=== PATIENT | female | born 2000 | race Caucasian/White ===

== ENCOUNTER → 2020-12-29 | Outpatient (CLI) | payer BC ==
[~2020-12-29] MED LIST: FAMO20TA5 PO; HYOS0.1216 PO
--- NOTE | 2020-12-29 16:54 | Diagnostic Imaging Report ---
INDICATION: anatomy survey. TECHNIQUE: Multiple real-time grayscale images were obtained over the gravid uterus. COMPARISON: None. FINDINGS: The cervix is closed measuring 6.9 cm in length. Placenta is anteriorly positioned, has normal thickness and there is no previa. Due to advanced gestation, maternal adnexa are suboptimally evaluated. The fetus is in transverse lie with head to maternal right. anatomy survey was performed and the following structures are visualized and normal: Stomach, four-chamber heart, kidneys, urinary bladder, three-vessel cord, spine, profile, umbilical cord insertion. The intracranial contents were not well seen due to positioning. Biometrical measurements are as follows: Biparietal 4.44 cm, age 19 weeks 3 days. Head circumference 17.51 cm, age 20 weeks 1 days. Abdominal circumference 15.12 cm, age 20 weeks 3 days. Femur length 3.09 cm, age 19 weeks 5 days. Sonographic estimate age: 20 weeks 0 days. Sonographic estimated date of delivery: 05/18/2021. Estimated Weight: 324 gm (+/- 47 gm). LMP percentile: 29%. heart rate: 155 beats per minute. number: 1 of 1. IMPRESSION: 1. Single live intrauterine with estimated gestational age of 20 weeks and 0 days. 2. anatomy survey is normal with the exception of inability to fully evaluate the intracranial contents due to fetus positioning. Dictated by: Dictated on workstation # [id number]
== END ==
LOC: RAD 13:00
PROVIDERS: ATTEND Obstetrics & Gynecology
DX: Z34.02 Encounter for supervision of normal first pregnancy, second trimester (principal); Z3A.20 20 weeks gestation of pregnancy
CPT/HCPCS: 76805

== ENCOUNTER 2021-04-26 20:18 | Outpatient (CLI) | payer BC ==
[~2021-04-26] VITALS: Ht 165.1 cm; Wt 87.5 kg
[2021-04-26 20:34] VITALS: BP 126/84
[2021-04-26 21:39] VITALS: BP 126/84
[2021-04-26 21:42] VITALS: BP 126/84
[2021-04-26 22:10] VITALS: BP 126/84
== END 2021-04-26 22:10 | disposition home or self-care (01) ==
LOC: LDRP 20:18 → WSo 20:18
PROVIDERS: ATTEND Obstetrics & Gynecology
DX: O62.9 Abnormality of forces of labor, unspecified (principal); Z3A.37 37 weeks gestation of pregnancy
CPT/HCPCS: 99213

== ENCOUNTER 2021-04-27 05:01 | Inpatient (IN) | payer BC ==
[~2021-04-27] VITALS: Ht 167.7 cm; Wt 87.0 kg
[2021-04-27] VITALS (11 sets, daily range): BP systolic 108–157; BP diastolic 63–93
[2021-04-27] MEDS ORDERED: D5 LR IV SOLUTION 1,000 ML IV ONE (05:24)
[2021-04-27] MEDS: D5 LR IV SOLUTION 1,000 ML IV SCH ×2 (05:45→15:02)
[2021-04-27] MEDS ORDERED: CATHETER FLUSH 10 ML SYR IV SCH ×2 (06:00→14:00)
[2021-04-27 06:03] LABS: BASOPHILS % (AUTO) 0 % (0-10); EOSINOPHILS % (AUTO) 0 % (0-10); HEMATOCRIT 38 % (35-52); HEMOGLOBIN 13.1 g/dL (11.5-16.0); LYMPHOCYTES # (AUTO) 1.5 10^3/uL (1.0-4.0); LYMPHOCYTES % (AUTO) 13 % (12-44); MEAN CORPUSCULAR HEMOGLOBIN 31 pg (25-34); MEAN CORPUSCULAR HGB CONC 35 g/dL (32-36); MEAN CORPUSCULAR VOLUME 90 fL (80-99); MEAN PLATELET VOLUME 11.2 fL (9.0-12.2); MONOCYTES # (AUTO) 0.6 10^3/uL (0.0-1.0); MONOCYTES % (AUTO) 5 % (0-12); NEUTROPHILS # (AUTO) 9.4 10^3/uL (1.8-7.8); NEUTROPHILS % (AUTO) 80 % (42-75); PLATELET COUNT 193 10^3/uL (130-400); WHITE BLOOD COUNT 11.7 10^3/uL (4.3-11.0)
[2021-04-27] MEDS ORDERED: LIDOCAINE/EPI 2% 1:200,00 (XYLOCAINE) 10 ML VIAL ONE ×2 (06:25→06:26)
[2021-04-27] MEDS ORDERED: OXYTOCIN PRE-MIX DRIP 500 ML IV ONE (06:33)
[2021-04-27] MEDS: OXYTOCIN PRE-MIX DRIP 500 ML IV SCH ×2 (07:00→07:45)
[2021-04-27] MEDS ORDERED: BENZOCAINE/MENTHOL (DERMOPLAST) 56 ML CAN TP PRN (07:30)
[2021-04-27] MEDS ORDERED: WITCH HAZEL(TUCKS) 40 EA JAR TOP PRN (07:30)
[2021-04-27] MEDS ORDERED: MEASLES,MUMPS,RUBELLA 1 EA INJ SQ ONE (07:30)
[2021-04-27] MEDS ORDERED: HYDROcodone/APAP 5 MG/325 MG (LORTAB) TAB PO PRN (07:30)
[2021-04-27] MEDS ORDERED: NALOXONE 0.4 MG/ML 1 ML (NARCAN) VIAL IV PRN (07:30)
[2021-04-27] MEDS ORDERED: TETANUS,DIPTH,PERTUSS P/F (BOOSTRIX) 0.5 ML VIAL IM ONE (07:30)
[2021-04-27] MEDS ORDERED: DIBUCAINE 1% OINTMENT 30 GM TUBE TOP PRN (07:30)
--- NOTE | 2021-04-27 08:41 | OB Labor & Delivery Record ---
L&D History Date of Service Date of Service: Apr 27, 2021 History Expected Date of Delivery: May 16, 2021 Gestational Age in Weeks: 37 Complications Events: Routine care Operative Indications (Cesarea: N/A-Vaginal Delivery Intrapartal Events: None L&D Stage1 Stage One Onset of Labor - Date: Apr 27, 2021 Monitors and Tracing Monitor Mode: External Heart Rate: 155 Monitor Accelerations: Uniform Monitor Decelerations: Variable Station: 0 Correction Variability: Average (6-10) Short Term Variability: Present Presentation: Vertex Vital Signs VS - Last 72 Hours, by Label 04/27/21 04/27/21 04/27/21 04/27/21 05:20 05:20 06:59 07:13 Temp 36.6 36.6 Pulse 95 95 91 83 Resp 18 18 18 18 B/P (MAP) 157/93 (114) 127/63 (84) 121/63 (82) Pulse Ox 98 98 O2 Delivery Room Air Room Air Room Air Room Air Rupture of Membranes Spontaneous Ruture of Membrane: Yes Amniotic Membrane Rupture Time: 0620 Amniotic Membrane Fluid Desc.: Clear Vaginal Bleeding Description: Normal Show Progress/Notes Patient admitted in active labor 6 cm dilatation, rapidly progressing to complete and +1 station without any analgesia when I was contacted for delivery L&D Stage2 Stage Two Stage II Date: Apr 27, 2021 Monitors and Tracing Monitor Mode: External Heart Rate: 155 Monitor Accelerations: Uniform Monitor Decelerations: Variable Correction Variability: Average (6-10) Short Term Variability: Present Position: Right Occiput Anterior Presentation: Vertex Cord Descript/Complications Cord Vessel Description: 3 Vessels Delivery Type Infant Delivery Method: Spontaneous Vaginal Anterior Shoulder: Left Episiotomy/Perineal Laceration Laceraction(s)/Extensions: Yes Episiotomy Description: Right Mediolateral Degree (describe repair) RML repaired using 3-0 rapide and 2-0 vicryl suture in usual fashion. Condition of Infant Delivery 1 minute Comment: 8 5 minute Comment: 9 Notes Live female weight 5lbs 6 oz Condition of Infant Condition of Infant: Living Exam: No Observed Abnormalities Resuscitation Resuscitation: N/A - Spontaneous Resp L&D Stage3 Stage Three Stage III Date: Apr 27, 2021 Pictocin Pitocin Administration Comment: 30 mu wide open after delivery of placenta Placenta Delivery Placenta Delivery: Spontaneous Delivery Summary Summary Estimated blood loss (mL): 350 Attending at delivery: Jyotsna Cuevas DO Condition of Delivery Examined: Cervix Examined, Uterus Explored Post Hemorrhage: No Condition of Mother stable Condition of (s) stable JYOTSNA CUEVAS DO Apr 27, 2021 8:41 am
--- NOTE | 2021-04-27 08:43 | History & Physical-OB ---
OB - Chief Complaint & HPI Date/Time Date of Admission: Date of Admission: Apr 27, 2021 at 5:27 am Date seen by a Provider: Apr 27, 2021 Time Seen by a Provider: 06:55 Chief Complaint/History OB-Reason for Admission/Chief: Onset of Labor Hx : 1 Hx Para: 0 Expected Date of Delivery: May 16, 2021 Gestational Age in Weeks: 37 Gestational Age in Days: 2 Admission Nurse Assessment Rev: Yes History of Labs B pos Antibody neg RI RPR NR HBsAg NR HIV NR GC neg GBS neg Allergies and Home Medications Allergies Coded Allergies: No Known Drug Allergies (Unverified , 05/31/14) Patient Home Medication List Home Medication List Reviewed: Yes No Active Prescriptions or Reported Meds OB - History Hx of Present Care: Yes Ultrasounds: Normal mid trimester US Obstetrical Complications: None Medical Complications: None Delivery History Hx Blood Disorders: No Patient Past Medical History n/a Immunizations Influenza Vaccine Up-to-Date: No; Not Current OB - Admission Exam Physical Exam Vitals: Vital Signs 04/27/21 07:13 Pulse 83 Resp 18 B/P (MAP) 121/63 (82) O2 Delivery Room Air HEENT: NCAT Heart: Rhythm Normal Lungs: Clear Abdomen: Gravid Extremities: Normal Reflexes: Normal Cervical Dilatation: 6cm Effacement: 100% Station: -1 Membranes: Intact Heart Rate: 130's Accelerations: Accelerations Present Decelerations: No Decelerations Short Term Variability: Present Fci Variability: Average (6-25) Contractions on Admission: < 5 Minutes Apart Intensity: Firm Labs Laboratory Tests Test 04/27/21 05:45 Range/Units White Blood Count 11.7 H 4.3-11.0 10^3/uL Red Blood Count 4.17 3.80-5.11 10^6/uL Hemoglobin 13.1 11.5-16.0 g/dL Hematocrit 38 35-52 % Mean Corpuscular Volume 90 80-99 fL Mean Corpuscular Hemoglobin 31 25-34 pg Mean Corpuscular Hemoglobin Concent 35 32-36 g/dL Red Cell Distribution Width 12.3 10.0-14.5 % Platelet Count 193 130-400 10^3/uL Mean Platelet Volume 11.2 9.0-12.2 fL Immature Granulocyte % (Auto) 1 % Neutrophils (%) (Auto) 80 H 42-75 % Lymphocytes (%) (Auto) 13 12-44 % Monocytes (%) (Auto) 5 0-12 % Eosinophils (%) (Auto) 0 0-10 % Basophils (%) (Auto) 0 0-10 % Neutrophils # (Auto) 9.4 H 1.8-7.8 10^3/uL Lymphocytes # (Auto) 1.5 1.0-4.0 10^3/uL Monocytes # (Auto) 0.6 0.0-1.0 10^3/uL Eosinophils # (Auto) 0.0 0.0-0.3 10^3/uL Basophils # (Auto) 0.0 0.0-0.1 10^3/uL Immature Granulocyte # (Auto) 0.1 0.0-0.1 10^3/uL OB - Assessment/Plan/Diagnosis Assessment Assessment: active labor Admission Dx 20 yo @ 37.2 weeks Active labor GBS neg Admission Status: Inpatient Order (span 2 midnights) Reason for Inpatient Admission: Active labor at term Plan Plan: Expectant Management JYOTSNA CUEVAS DO Apr 27, 2021 8:43 am
[2021-04-27] MEDS: FERROUS SULF 325 MG (IRON) TAB PO SCH (09:22)
[2021-04-27] MEDS: DOCUSATE SODIUM 100 MG (COLACE) CAP PO SCH ×2 (09:22→22:58)
[2021-04-27] MEDS ORDERED: IBUPROFEN 600 MG (MOTRIN) TAB PO ONE (09:24)
[2021-04-27] MEDS: IBUPROFEN 600 MG (MOTRIN) TAB PO SCH ×3 (09:25→22:58)
[2021-04-28 02:05] VITALS: BP 99/56
[2021-04-28 05:37] VITALS: BP 116/73
[2021-04-28] MEDS: IBUPROFEN 600 MG (MOTRIN) TAB PO SCH ×2 (05:38→11:41)
[2021-04-28 05:50] LABS: BASOPHILS % (AUTO) 0 % (0-10)
[2021-04-28 05:52] LABS: EOSINOPHILS # (AUTO) 0.1 10^3/uL (0.0-0.3); EOSINOPHILS % (AUTO) 1 % (0-10); HEMATOCRIT 32 % (35-52); HEMOGLOBIN 10.8 g/dL (11.5-16.0); LYMPHOCYTES # (AUTO) 1.3 10^3/uL (1.0-4.0); LYMPHOCYTES % (AUTO) 21 % (12-44); MEAN CORPUSCULAR HEMOGLOBIN 32 pg (25-34); MEAN CORPUSCULAR HGB CONC 33 g/dL (32-36); MEAN CORPUSCULAR VOLUME 95 fL (80-99); MEAN PLATELET VOLUME 11.3 fL (9.0-12.2); MONOCYTES # (AUTO) 0.3 10^3/uL (0.0-1.0); MONOCYTES % (AUTO) 6 % (0-12); NEUTROPHILS # (AUTO) 4.3 10^3/uL (1.8-7.8); NEUTROPHILS % (AUTO) 71 % (42-75); PLATELET COUNT 132 10^3/uL (130-400); WHITE BLOOD COUNT 6.1 10^3/uL (4.3-11.0)
[2021-04-28] MEDS ORDERED: PRENATAL VITAMIN 1 EA TAB PO SCH (07:00)
[2021-04-28 08:48] VITALS: BP 123/74
[2021-04-28] MEDS: DOCUSATE SODIUM 100 MG (COLACE) CAP PO SCH (08:49)
[2021-04-28] MEDS: FERROUS SULF 325 MG (IRON) TAB PO SCH (08:49)
[2021-04-28] MEDS ORDERED: DOCU100C37 PO (10:59)
[2021-04-28] MEDS ORDERED: BENZ78AE5 TP (10:59)
[2021-04-28] MEDS ORDERED: ACHD5005 PO (10:59)
[2021-04-28] MEDS ORDERED: DIBU30OI TOP (10:59)
[2021-04-28] MEDS ORDERED: IBUP-844 PO (10:59)
--- NOTE | 2021-04-28 11:01 | Discharge Inst-Women's Service ---
Discharge Inst-Women's Serv Depart Medication/Instructions New, Converted or Re-Newed RX: Transmitted to Pharmacy Consults/Follow Up Additional Follow Up: Yes Orders/Referrals 6wk PP appt Activity Activity: Activity as Tolerated Driving Instructions: No Driving for 1 Week NO SMOKING: NO SMOKING Nothing Inside Vagina: No Douching, No [place], No Tampons Diet Discharge Diet: No Restrictions Symptoms to Report to : Pain Increased, Fever Over 101 Degrees F, Vaginal Bleeding Increase For Any Problems or Questions: Contact Your Physician DALLIN DONIS APRN Apr 28, 2021 11:01
--- NOTE | 2021-04-28 11:02 | Postpartum Progress Note ---
Note Note Day # 1 Subjective: Patient is without complaints. Ambulating, voiding. Tolerating a regular diet without nausea or vomiting. Normal lochia. Pain is well controlled with oral pain medications. Objective: Physical Exam: General - Alert and oriented, no apparent distress Abdomen - Soft, appropriately tender to palpation, non-distended, fundus firm at umbilicus Extremities - no edema, negative Julio's bilaterally Assessment: Post- day # 1, status post vaginal delivery. Recovering well, hemodynamically stable Acute blood loss anemia Plan: Routine care. Encourage breast feeding. Encourage ambulation. Ferrous sulfate supplementation. Plan for discharge today Vitals - Labs Vital Signs - I&O Vital Signs Date Time Temp Pulse Resp B/P (MAP) Pulse Ox O2 Delivery O2 Flow Rate FiO2 04/28/21 05:37 36.2 87 18 116/73 (87) 98 Room Air 04/28/21 02:05 36.4 71 16 99/56 (70) 97 Room Air 04/27/21 22:57 36.3 69 20 108/71 (83) 98 Room Air 04/27/21 18:23 36.9 73 18 116/74 (88) 97 Room Air 04/27/21 12:53 36.3 76 18 113/72 (86) 98 Room Air I & O 04/28/21 07:00 Intake Total 1000 ml Balance 1000 ml Labs Laboratory Tests 04/28/21 05:17: White Blood Count 6.1, Red Blood Count 3.42L, Hemoglobin 10.8L, Hematocrit 32L, Mean Corpuscular Volume 95, Mean Corpuscular Hemoglobin 32, Mean Corpuscular Hemoglobin Concent 33, Red Cell Distribution Width 12.7, Platelet Count 132, Mean Platelet Volume 11.3, Immature Granulocyte % (Auto) 1, Neutrophils (%) (Auto) 71, Lymphocytes (%) (Auto) 21, Monocytes (%) (Auto) 6, Eosinophils (%) (Auto) 1, Basophils (%) (Auto) 0, Neutrophils # (Auto) 4.3, Lymphocytes # (Auto) 1.3, Monocytes # (Auto) 0.3, Eosinophils # (Auto) 0.1, Basophils # (Auto) 0.0, Immature Granulocyte # (Auto) 0.1, Percent Immature Platelet Fraction 5.0 DALLIN DONIS CORDUROY CUTTING SUPERVISOR Apr 28, 2021 11:02
== END 2021-04-28 13:55 | disposition home or self-care (01) | DRG 806 ==
LOC: WSo 05:01 → LDRP 05:05 → WSo 05:26 → LDRP 05:27
PROVIDERS: ADMIT Obstetrics & Gynecology; ATTEND Obstetrics & Gynecology
PROC: 10E0XZZ Delivery of Products of Conception, External Approach (ICD-10-PCS; principal; 2021-04-27)
PROC: 0W8NXZZ Division of Female Perineum, External Approach (ICD-10-PCS; 2021-04-27)
DX: O90.81 Anemia of the puerperium (principal); D62 Acute posthemorrhagic anemia; Z37.0 Single live birth; Z3A.37 37 weeks gestation of pregnancy
CPT/HCPCS: 36415; 85025; 86850; 86900; 86901

== ENCOUNTER → 2022-09-21 | Outpatient (CLI) | payer BC ==
[~2022-09-21] MED LIST changes: +ACHD5005 PO; +BENZ78AE5 TP; +DIBU30OI TOP; +DOCU100C37 PO; +IBUP-844 PO
--- NOTE | 2022-09-21 15:36 | Diagnostic Imaging Report ---
INDICATION: survey. TECHNIQUE: Multiple real-time grayscale images were obtained over the gravid uterus. COMPARISON: None FINDINGS: There is a single live fetus in cephalic presentation. heart rate was recorded at 1 46 bpm. Placenta is posterior. No previa is detected. Amniotic fluid index is 10 cm. Cervical length is 5 cm. kidneys, bladder and stomach are unremarkable. brains unremarkable. There is a four-chamber heart. There is a three-vessel cord with normal insertion. spine is unremarkable. Biometrical measurements are as follows: Biparietal 4.35 cm, age 19 weeks 2 days. Head circumference 17.06 cm, age 19 weeks 5 days. Abdominal circumference 14.67 cm, age 20 weeks 0 days. Femur length 3.54 cm, age 21 weeks 2 days. Sonographic estimate age: 20 weeks 1 days. Sonographic estimated date of delivery: 02/07/2023. Estimated Weight: 351 gm (+/- 51 gm). LMP percentile: 68%. heart rate: 146 beats per minute. number: 1 of 1. IMPRESSION: Single live IUP 20 weeks 1 day gestational age. Estimated of confinement sonographically is 02/07/2023. Dictated by: Dictated on workstation # [id number]
== END ==
LOC: RAD 10:42
PROVIDERS: ATTEND Nurse Practitioner Women's Health
DX: Z34.02 Encounter for supervision of normal first pregnancy, second trimester (principal); Z3A.20 20 weeks gestation of pregnancy
CPT/HCPCS: 76805

== ENCOUNTER 2022-12-08 14:22 | Outpatient (CLI) | payer BC ==
[~2022-12-08] VITALS: Ht 167 cm; Wt 82.5 kg
[2022-12-08 14:40] VITALS: BP 115/67
[2022-12-08 14:41] LABS: BILIRUBIN,URINE 1+ (NEGATIVE); CLARITY,URINE CLOUDY; COLOR,URINE DARK YELLOW; GLUCOSE, URINE (UA) NEGATIVE (NEGATIVE); KETONES,URINE NEGATIVE (NEGATIVE); LEUKOCYTE ESTERASE ,URINE 1+ (NEGATIVE); NITRITE,URINE NEGATIVE (NEGATIVE); PROTEIN,URINE 1+ (NEGATIVE)
[2022-12-08 14:47] VITALS: BP 115/67
[2022-12-08 14:52] LABS: BACTERIA,URINE LARGE /HPF; RBC,URINE 50-100 /HPF
[2022-12-08] MEDS ORDERED: CEPH500C PO ×2 (15:07)
--- NOTE | 2022-12-08 15:11 | OB Triage Report ---
Standard Progress Note Progress Notes/Assess & Plan Date Seen by a Provider: Dec 08, 2022 Time Seen by a Provider: 15:08 Expected Date of Delivery: Feb 08, 2023 Gestational Age in Weeks: 31 Gestational Age in Days: 1 LMP/ADELIA Comment: This presents to L&D @ 84x8tyw with c/o Cramping and spotting. Pt states that she had intercourse yesterday and no active bleeding at present FHT 135 reactive TOCOs none irritability Labs reviewed +UTI UCX sent Progress/Assessment & Plan IUP @ 31w1d UTI Spotting postcoital Reassurance pelvic rest RX for ATBX UCX pending. Diagnosis/Problems Diagnosis/Problems (1) UTI (urinary tract infection) during (2) 31 weeks gestation of (3) Uterine contractions (4) Back pain ARACELI FERNÁNDEZ DO Dec 08, 2022 15:11
== END 2022-12-08 15:19 | disposition home or self-care (01) ==
LOC: WSo 14:22 → LDRP 14:22 → WSo 15:19
PROVIDERS: ATTEND Obstetrics & Gynecology
DX: O23.43 Unspecified infection of urinary tract in pregnancy, third trimester (principal); O26.853 Spotting complicating pregnancy, third trimester; Z3A.31 31 weeks gestation of pregnancy
CPT/HCPCS: 81000; 87088; 99212

== ENCOUNTER 2022-12-09 20:34 | Outpatient (CLI) | payer BC ==
[~2022-12-09] VITALS: Ht 167.7 cm; Wt 83.1 kg
[~2022-12-09 20:34] MED LIST changes: +CEPH500C PO
[2022-12-09 21:03] VITALS: BP 119/68
[2022-12-09] MEDS ORDERED: ACETAMINOPHEN 500 MG TABLET ONE (21:21)
[2022-12-09] MEDS ORDERED: ACETAMINOPHEN 500 MG TABLET PO ONE (21:30)
--- NOTE | 2022-12-11 08:37 | Physician Query-Final Dx ---
Clinic Account Progress/Dx Physician Query: Please give diagnosis Please include # weeks gestation Date of Service Dec 09, 2022 at 20:34 VIKRAM,MayDec 11, 2022 08:37
== END 2022-12-09 21:34 | disposition home or self-care (01) ==
LOC: WSo 20:34 → LDRP 20:35 → WSo 21:34
PROVIDERS: ATTEND Obstetrics & Gynecology
DX: O62.9 Abnormality of forces of labor, unspecified (principal); Z3A.31 31 weeks gestation of pregnancy
CPT/HCPCS: 99212

== ENCOUNTER 2022-12-11 01:13 | Inpatient (IN) | payer BC ==
[2022-12-11] VITALS (12 sets, daily range): BP systolic 96–145; BP diastolic 52–80
[~2022-12-11] VITALS: Ht 167.7 cm; Wt 83.3 kg
[2022-12-11 01:37] LABS: BILIRUBIN,URINE NEGATIVE (NEGATIVE); CLARITY,URINE CLEAR; COLOR,URINE YELLOW; GLUCOSE, URINE (UA) NEGATIVE (NEGATIVE); KETONES,URINE NEGATIVE (NEGATIVE); LEUKOCYTE ESTERASE ,URINE 2+ (NEGATIVE); NITRITE,URINE NEGATIVE (NEGATIVE); PROTEIN,URINE NEGATIVE (NEGATIVE)
[2022-12-11] MEDS ORDERED: AMPICILLIN 2,000 MG/14.8 ML (IV USE) ONE (01:45)
[2022-12-11] MEDS ORDERED: NS (IVPB) 100 ML 100 ML ONE (01:45)
[2022-12-11] MEDS ORDERED: WATER (STERILE) FOR INJECTION 20 ML ONE (01:45)
[2022-12-11] MEDS ORDERED: BETAMETHASONE Acetate/Na Phosphate 6 MG/ML INJ ONE (01:46)
[2022-12-11] MEDS ORDERED: LACTATED RINGERS 1,000 ML IV ONE (01:46)
[2022-12-11] MEDS ORDERED: AMPICILLIN (IV) 2,000 MG in NS (IVPB) 50 ML 50 ML IV SCH (01:50)
[2022-12-11 01:51] LABS: BACTERIA,URINE LARGE /HPF; WBC,URINE 50-100 /HPF
[2022-12-11] MEDS ORDERED: D5 LR 1,000 ML IV SOLN 1,000 ML IV SCH (02:00)
[2022-12-11 02:03] LABS: BASOPHILS % (AUTO) 0 % (0-10); EOSINOPHILS # (AUTO) 0.1 10^3/uL (0.0-0.3); EOSINOPHILS % (AUTO) 1 % (0-10); HEMATOCRIT 36 % (35-52); HEMOGLOBIN 11.6 g/dL (11.5-16.0); LYMPHOCYTES # (AUTO) 1.1 10^3/uL (1.0-4.0); LYMPHOCYTES % (AUTO) 14 % (12-44); MEAN CORPUSCULAR HEMOGLOBIN 32 pg (25-34); MEAN CORPUSCULAR HGB CONC 32 g/dL (32-36); MEAN CORPUSCULAR VOLUME 98 fL (80-99); MEAN PLATELET VOLUME 10.9 fL (9.0-12.2); MONOCYTES # (AUTO) 0.6 10^3/uL (0.0-1.0); MONOCYTES % (AUTO) 7 % (0-12); NEUTROPHILS # (AUTO) 6.5 10^3/uL (1.8-7.8); NEUTROPHILS % (AUTO) 78 % (42-75); PLATELET COUNT 143 10^3/uL (130-400); WHITE BLOOD COUNT 8.4 10^3/uL (4.3-11.0)
[2022-12-11] MEDS ORDERED: ONDANSETRON 4 MG/2 ML (SDV) Z0FRAN ONE (02:27)
[2022-12-11] MEDS ORDERED: ONDANSETRON 4 MG/2 ML (SDV) Z0FRAN IVP ONE (02:30)
[2022-12-11] MEDS ORDERED: OXYTOCIN PRE-MIX DRIP 500 ML IV ONE (02:46)
--- NOTE | 2022-12-11 03:09 | History & Physical-OB ---
OB - Chief Complaint & HPI Date/Time Date of Admission: Date of Admission: 12/11/22 Date seen by a Provider: Dec 11, 2022 Time Seen by a Provider: 01:40 Chief Complaint/History OB-Reason for Admission/Chief: Onset of Labor Hx : 2 Hx Para: 1 Expected Date of Delivery: Feb 08, 2023 Gestational Age in Weeks: 31 Gestational Age in Days: 4 Admission Nurse Assessment Rev: Yes History of Labs B+ R-I HepB/C neg HIV neg Other This 22yo presents to L&D with c/o CTXs She states that she has had CTX off and on all day today but CTXs worsened after dinner last night. Pt presents with increasing frequency and intensity of CTXs. Pt was seen 2x this weekend with back pain and was dx'd with UTI and was given RX for UTI UCX showed contaminated but some bacteria questionable concern. Pt states that CTXs didn't become regular until this evening. Pt was CTXing Q 2-3min with FHT 140 and with variables. RN CVX check 5-6cm bulging bag. Allergies and Home Medications Allergies Coded Allergies: No Known Drug Allergies (Unverified , 05/31/14) Patient Home Medication List Home Medication List Reviewed: Yes Cephalexin (Cephalexin) 500 Mg Capsule, 500 MG PO BID Prescribed by: Araceli Fernández on 12/08/22 1507 Last Action: Reviewed Docusate Sodium (Docusate Sodium) 100 Mg Capsule, 100 MG PO BID Prescribed by: DALLIN DONIS on 04/28/21 1059 Last Action: Reviewed Discontinued Medications Benzocaine/Menthol (Dermoplast Pain Relieving [place]) 78 Gm Aerosol, 56 EA TP UD PRN for PAIN- SEE INSTRUCTIONS Prescribed by: DALLIN DONIS on 04/28/21 1059 Dibucaine (Dibucaine) 30 Gm Oint, 0 GM TOP UD PRN for PAIN- SEE INSTRUCTIONS Prescribed by: DALLIN DONIS on 04/28/21 1059 Hydrocodone Bit/Acetaminophen (HYDROcodone/APAP 5 MG/325 MG TAB) 1 Tab Tab, 1 EA PO Q4H PRN for PAIN-MODERATE (5-7) Prescribed by: DALLIN DONIS on 04/28/21 1100 Ibuprofen (Ibu) 600 Mg Tablet, 600 MG PO Q6HR Prescribed by: DALLIN DONIS on 04/28/21 1059 OB - History Hx of Present Care: Yes Ultrasounds: Normal mid trimester US Obstetrical Complications: None Medical Complications: None Information Induced Hypertension: No Maternal Gestational Diabetes: No Hemorrhage: No Obstetrical History Hx : 2 Hx Para: 1 Hx # Term Pregnancies: 1 Number of Living Children: 1 Hx Termination: No Hx Multiple Gestation: No Hx Ectopic : No Hx Stillbirth: No Hx Complication: No Hx Induced Hypertens: No Hx Maternal Gestational Diabet: No Hx Hemorrhage: No Delivery History Hx Dystocia: No Hx Forceps Assisted Delivery: No Hx Vacuum Extraction Assisted: No Hx Placenta Abnormality: No Hx Distress: No Hx Large For Gestational Age I: No Hx Small for Gestational Age I: No Hx Section: No Hx Vaginal Delivery Post C-Sec: No Hx Blood Disorders: No Adverse Rxn to Tranfusion: No Patient Past Medical History n/a Social History/Family History Alcohol Use: Denies Use Smoking Cessation: Never smoker 2nd Hand Smoke Exposure: No Immunizations Influenza Vaccine Up-to-Date: Yes; Up-to-Date OB - Admission Exam Physical Exam HEENT: NCAT Heart: Rhythm Normal Lungs: Clear Abdomen: Gravid Extremities: Normal Reflexes: Normal Cervical Dilatation: 6cm Effacement: 75% Station: Ballotable (US shows breech presentation ) Membranes: Intact Intensity: Moderate Labs Laboratory Tests Test 12/11/22 01:25 12/11/22 01:45 Range/Units Urine Color YELLOW Urine Clarity CLEAR Urine pH 6.0 5-9 Urine Specific [place] 1.020 1.016-1.022 Urine Protein NEGATIVE NEGATIVE Urine Glucose (UA) NEGATIVE NEGATIVE Urine Ketones NEGATIVE NEGATIVE Urine Nitrite NEGATIVE NEGATIVE Urine Bilirubin NEGATIVE NEGATIVE Urine Urobilinogen 1.0 < = 1.0 MG/DL Urine Leukocyte Esterase 2+ H NEGATIVE Urine RBC (Auto) 2+ H NEGATIVE Urine RBC 5-10 H /HPF Urine WBC 50-100 H /HPF Urine Squamous Epithelial Cells 10-25 H /HPF Urine Crystals NONE /LPF Urine Bacteria LARGE H /HPF Urine Casts NONE /LPF Urine Mucus MODERATE H /LPF Urine Culture Indicated YES White Blood Count 8.4 4.3-11.0 10^3/uL Red Blood Count 3.64 L 3.80-5.11 10^6/uL Hemoglobin 11.6 11.5-16.0 g/dL Hematocrit 36 35-52 % Mean Corpuscular Volume 98 80-99 fL Mean Corpuscular Hemoglobin 32 25-34 pg Mean Corpuscular Hemoglobin Concent 32 32-36 g/dL Red Cell Distribution Width 15.7 H 10.0-14.5 % Platelet Count 143 130-400 10^3/uL Mean Platelet Volume 10.9 9.0-12.2 fL Immature Granulocyte % (Auto) 1 % Neutrophils (%) (Auto) 78 H 42-75 % Lymphocytes (%) (Auto) 14 12-44 % Monocytes (%) (Auto) 7 0-12 % Eosinophils (%) (Auto) 1 0-10 % Basophils (%) (Auto) 0 0-10 % Neutrophils # (Auto) 6.5 1.8-7.8 10^3/uL Lymphocytes # (Auto) 1.1 1.0-4.0 10^3/uL Monocytes # (Auto) 0.6 0.0-1.0 10^3/uL Eosinophils # (Auto) 0.1 0.0-0.3 10^3/uL Basophils # (Auto) 0.0 0.0-0.1 10^3/uL Immature Granulocyte # (Auto) 0.1 0.0-0.1 10^3/uL Syphilis Total Antibody Negative Negative OB - Assessment/Plan/Diagnosis Assessment Assessment: active labor Admission Dx IUP @ 31w4d Active labor UTI Breech Admission Status: Inpatient Order (span 2 midnights) Reason for Inpatient Admission: Active labor Plan Plan: Expectant Management (ATBx IV BTMZ 12mg Learning And Development Intern notified) ARACELI FERNÁNDEZ DO Dec 11, 2022 03:09
[2022-12-11] MEDS ORDERED: OXYTOCIN PRE-MIX DRIP 500 ML IV SCH (03:15)
[2022-12-11] MEDS ORDERED: Tetanus/Diphtheria/Pertussis (Acell) ADULT Vaccine 0.5 ML IM ONE (03:15)
[2022-12-11] MEDS ORDERED: ACETAMINOPHEN 500 MG TABLET PO PRN (03:15)
[2022-12-11] MEDS ORDERED: NALOXONE 0.4 MG/ML 1 ML (NARCAN) VIAL IV PRN (03:15)
[2022-12-11] MEDS ORDERED: IBUPROFEN 600 MG (MOTRIN) TAB PO PRN (03:15)
[2022-12-11] MEDS ORDERED: DIBUCAINE 1% OINTMENT 28 GM TUBE TOP PRN (03:15)
[2022-12-11] MEDS ORDERED: BENZOCAINE/MENTHOL (DERMOPLAST) 56 ML CAN TP PRN (03:15)
[2022-12-11] MEDS ORDERED: WITCH HAZEL(TUCKS) 40 EA JAR TOP PRN (03:15)
--- NOTE | 2022-12-11 03:27 | OB Labor & Delivery Record ---
Vag Delivery Note Vag Delivery Note Date of Delivery: 12/11/22 Preoperative Diagnosis: Logan Rm is a (22 /Para / ,Gestational Age 31w4d (wks)with CTXs breech presentation Postoperative Diagnosis: Same Surgeon: ARACELI FERNÁNDEZ Grade Foreman: [] Anesthesia: None Delivery Type: Spontaneous Vaginal delivery Findings: [] Liveborn female infant, apgars 2/4/7, weight Pending Lacerations: None Intact placenta with 3 vessel cord. No nuchal cord, body cord or shoulder dystocia Estimated Blood Loss: 100ml Complications: Breech presentation Condition: Stable Description of Procedure: The patient is a 22 year old female who presented To labor and delivery with complaint of contractions. She had been seen earlier in the week diagnosed with a urinary tract infection and given a prescription for antibiotics. She states that the contractions were off and on throughout the day today but became more frequent and intense after dinner 6 or 7:00 in the evening last night. When she arrived on labor and delivery she is williams about every 2 to 3 minutes and she was about 6 cm dilated with a bulging bag. An ultrasound was performed which showed breech presentation. The ticket clerk and the OR team were notified. However, she rapidly progressed to complete with an intact bag. She was then set up for delivery delivered the buttocks and an LSA position. The buttocks and then the legs were delivered and the cord was lengthened and the body was allowed to hang. The arms were then delivered the right arm followed by the left arm followed by the head. The was placed on maternal abdomen the cord was clamped and then cut and the was taken to the team underneath the warmer. The placenta delivered spontaneously intact with three-vessel cord. Cord gases and cord bloods were obtained. The cervix, vagina, periurethral and perineal areas were all ins pected. There were no lacerations. The quantitative blood loss was 100 cc. The mother and tolerated the procedure well. The infant was taken to the nursery for continued care. All my counts were correct x2 Vitals - Labs Labs Laboratory Tests 12/11/22 01:25: Urine Color YELLOW, Urine Clarity CLEAR, Urine pH 6.0, Urine Specific [place] 1.020, Urine Protein NEGATIVE, Urine Glucose (UA) NEGATIVE, Urine Ketones NEGATIVE, Urine Nitrite NEGATIVE, Urine Bilirubin NEGATIVE, Urine Urobilinogen 1.0, Urine Leukocyte Esterase 2+H, Urine RBC (Auto) 2+H, Urine RBC 5-10H, Urine WBC 50-100H, Urine Squamous Epithelial Cells 10-25H, Urine Crystals NONE, Urine Bacteria LARGEH, Urine Casts NONE, Urine Mucus MODERATEH, Urine Culture Indicated YES 12/11/22 01:45: White Blood Count 8.4, Red Blood Count 3.64L, Hemoglobin 11.6, Hematocrit 36, Mean Corpuscular Volume 98, Mean Corpuscular Hemoglobin 32, Mean Corpuscular Hemoglobin Concent 32, Red Cell Distribution Width 15.7H, Platelet Count 143, Mean Platelet Volume 10.9, Immature Granulocyte % (Auto) 1, Neutrophils (%) (Auto) 78H, Lymphocytes (%) (Auto) 14, Monocytes (%) (Auto) 7, Eosinophils (%) (Auto) 1, Basophils (%) (Auto) 0, Neutrophils # (Auto) 6.5, Lymphocytes # (Auto) 1.1, Monocytes # (Auto) 0.6, Eosinophils # (Auto) 0.1, Basophils # (Auto) 0.0, Immature Granulocyte # (Auto) 0.1, Syphilis Total Antibody Negative ARACELI FERNÁNDEZ DO Dec 11, 2022 03:27
[2022-12-11] MEDS ORDERED: FERR325T24 PO (03:32)
[2022-12-11] MEDS ORDERED: IBUP-844 PO (03:32)
[2022-12-11] MEDS ORDERED: PNV1TABL67 PO (03:32)
[2022-12-11] MEDS ORDERED: CEPH500C PO (03:32)
[2022-12-11] MEDS ORDERED: METHYLERGONOVINE 0.2 MG/ML (METHERGINE) AMP ONE (04:41)
[2022-12-11] MEDS ORDERED: AMPICILLIN (IV) 1,000 MG in NS (IVPB) 50 ML 50 ML IV SCH (06:00)
[2022-12-11] MEDS ORDERED: CATHETER FLUSH 10 ML SYR IV SCH ×2 (06:00)
[2022-12-11] MEDS ORDERED: PRENATAL VITAMIN 1 EA TAB PO SCH (07:00)
--- NOTE | 2022-12-11 08:01 | Discharge Inst-Women's Service ---
Discharge Inst-Women's Serv Depart Medication/Instructions New, Converted or Re-Newed RX: Transmitted to Pharmacy Final Diagnosis PPD 0 delivery breech presenting infant Problems Reviewed?: Yes Consults/Follow Up Additional Follow Up: Yes Orders/Referrals Dr. Cuevas in 6 weeks Activity Activity: Activity as Tolerated Driving Instructions: You May Drive NO SMOKING: NO SMOKING Nothing Inside Vagina: No Douching, No [place], No Tampons Diet Discharge Diet: No Restrictions Symptoms to Report to : Bleeding Excessive, Pain Increased, Fever Over 101 Degrees F, Vaginal Bleeding Increase, Questions/Concerns For Any Problems or Questions: Contact Your Physician JYOTSNA CUEVAS DO Dec 11, 2022 08:01
--- NOTE | 2022-12-11 08:03 | Postpartum Progress Note ---
Note Note Day # 0 Subjective: Patient is without complaints. Ambulating, voiding. Tolerating a regular diet without nausea or vomiting. Normal lochia. Pain is well controlled with oral pain medications. Objective: Physical Exam: General - Alert and oriented, no apparent distress Abdomen - Soft, appropriately tender to palpation, non-distended, fundus firm at umbilicus Extremities - no edema, negative Julio's bilaterally Assessment: PPD 0 Vaginal delivery breech 31 week delivery Plan: Routine care. Encourage breast feeding. Encourage ambulation. Ferrous sulfate supplementation. Plan for discharge today for mother to go be with at [facility] Vitals - Labs Vital Signs - I&O Vital Signs Date Time Temp Pulse Resp B/P (MAP) Pulse Ox O2 Delivery O2 Flow Rate FiO2 12/11/22 05:48 36.4 67 16 96/52 (67) 99 Room Air 12/11/22 04:23 76 16 114/58 (76) Room Air 12/11/22 03:52 77 16 114/62 (79) Room Air 12/11/22 03:37 68 16 115/56 (75) Room Air 12/11/22 03:22 75 18 121/58 (79) Room Air 12/11/22 03:07 61 18 122/61 (81) Room Air 12/11/22 02:53 91 18 139/59 (85) Room Air 12/11/22 02:45 75 18 145/64 (91) Room Air 12/11/22 02:37 111 20 143/80 (101) Room Air 12/11/22 02:07 80 20 109/62 (78) Room Air 12/11/22 01:40 36.7 83 20 128/76 100 Room Air 12/11/22 01:40 Room Air I & O 12/11/22 07:00 Intake Total 1500 ml Balance 1500 ml Labs Laboratory Tests 12/11/22 01:25: Urine Color YELLOW, Urine Clarity CLEAR, Urine pH 6.0, Urine Specific [place] 1.020, Urine Protein NEGATIVE, Urine Glucose (UA) NEGATIVE, Urine Ketones NEGATIVE, Urine Nitrite NEGATIVE, Urine Bilirubin NEGATIVE, Urine Urobilinogen 1.0, Urine Leukocyte Esterase 2+H, Urine RBC (Auto) 2+H, Urine RBC 5-10H, Urine WBC 50-100H, Urine Squamous Epithelial Cells 10-25H, Urine Crystals NONE, Urine Bacteria LARGEH, Urine Casts NONE, Urine Mucus MODERATEH, Urine Culture Indicated YES 12/11/22 01:45: White Blood Count 8.4, Red Blood Count 3.64L, Hemoglobin 11.6, Hematocrit 36, Mean Corpuscular Volume 98, Mean Corpuscular Hemoglobin 32, Mean Corpuscular Hemoglobin Concent 32, Red Cell Distribution Width 15.7H, Platelet Count 143, Mean Platelet Volume 10.9, Immature Granulocyte % (Auto) 1, Neutrophils (%) (Auto) 78H, Lymphocytes (%) (Auto) 14, Monocytes (%) (Auto) 7, Eosinophils (%) (Auto) 1, Basophils (%) (Auto) 0, Neutrophils # (Auto) 6.5, Lymphocytes # (Auto) 1.1, Monocytes # (Auto) 0.6, Eosinophils # (Auto) 0.1, Basophils # (Auto) 0.0, Immature Granulocyte # (Auto) 0.1, Syphilis Total Antibody Negative 12/11/22 03:00: Glucometer 58*L JYOTSNA CUEVAS DO Dec 11, 2022 08:03
[2022-12-11] MEDS ORDERED: CEPHALEXIN 250 MG CAPSULE PO SCH (09:00)
[2022-12-11] MEDS ORDERED: FERROUS SULF 325 MG (IRON) TAB PO SCH (09:00)
[2022-12-11] MEDS ORDERED: BETAMETHASONE Acetate/Na Phosphate 6 MG/ML INJ IM SCH (09:00)
[2022-12-11] MEDS ORDERED: DOCUSATE SODIUM 100 MG CAPSULE PO SCH (09:00)
== END 2022-12-11 08:54 | disposition home or self-care (01) | DRG 806 ==
LOC: WSo 01:13 → LDRP 01:15 → WSo 02:40 → LDRP 04:45
PROVIDERS: ADMIT Obstetrics & Gynecology; ATTEND Obstetrics & Gynecology
PROC: 10E0XZZ Delivery of Products of Conception, External Approach (ICD-10-PCS; principal; 2022-12-11)
DX: O60.14X0 Preterm labor third trimester with preterm delivery third trimester, not applicable or unspecified (principal); O23.43 Unspecified infection of urinary tract in pregnancy, third trimester; Z37.0 Single live birth; Z3A.31 31 weeks gestation of pregnancy; O32.1XX0 Maternal care for breech presentation, not applicable or unspecified
CPT/HCPCS: 36415; 81000; 82947; 85025; 86780; 86850; 86900; 86901; 87088; 99213